=== PATIENT | male | born 1990 | race Caucasian/White ===

== ENCOUNTER 2017-02-26 20:30 | Emergency (ER) | payer SELFPAY ==
[2017-02-26] MEDS ORDERED: Ketorolac Tromethamine 60 MG/2 ML VIAL ONE (20:50)
== END 2017-02-26 21:09 | disposition home or self-care (01) ==
LOC: BURERS 20:30
DX: B34.9 Viral infection, unspecified (principal); I10 Essential (primary) hypertension; I34.1 Nonrheumatic mitral (valve) prolapse; F17.210 Nicotine dependence, cigarettes, uncomplicated
CPT/HCPCS: 96372; J1885

== ENCOUNTER 2017-04-24 17:06 | Emergency (ER) | payer SELFPAY ==
[2017-04-24] MEDS ORDERED: HYDROcodone/Acetaminophen 10/325 mg Tablet ONE (17:24)
[2017-04-24] MEDS ORDERED: Bacitracin Zinc 1 Packet ONE (18:32)
--- NOTE | 2017-04-24 22:07 | RAD ---
RIGHT HAND THREE VIEWS: 04/24/17 No fracture was seen. There is a linear opaque foreign body just medial to the fifth MCP joint that i s probably a small sliver of glass. No other foreign bodies were detected. All bones appeared intact. A faint bony density near the distal radioulnar joint is more likely longstanding than new. IMPRESSION: Small foreign body in the superficial soft tissues just medial to the fifth MCP joint. Code T POS: HOME
== END 2017-04-24 18:36 | disposition home or self-care (01) ==
LOC: BURERS 17:06
DX: S61.411A Laceration without foreign body of right hand, initial encounter (principal); I10 Essential (primary) hypertension; I34.1 Nonrheumatic mitral (valve) prolapse; F17.210 Nicotine dependence, cigarettes, uncomplicated; W25.XXXA Contact with sharp glass, initial encounter
CPT/HCPCS: 12002

== ENCOUNTER 2017-07-13 15:26 | Emergency (ER) | payer SELFPAY ==
[2017-07-13] MEDS ORDERED: Fluorescein Opthalmic Strip ONE (15:56)
[2017-07-13] MEDS ORDERED: Gentamicin Ophth Soln 0.3% 5 ml Bottle ONE (16:12)
== END 2017-07-13 16:22 | disposition home or self-care (01) ==
LOC: BURERS 15:26
DX: H16.001 Unspecified corneal ulcer, right eye (principal); I10 Essential (primary) hypertension; F17.210 Nicotine dependence, cigarettes, uncomplicated
CPT/HCPCS: 99283

== ENCOUNTER 2019-09-22 19:29 | Emergency (ER) | payer OTHER, SELFPAY ==
[2019-09-23 16:12] LABS: SARS-CoV-2 MS2 Positive; SARS-CoV-2 N Gene Negative; SARS-CoV-2 S Gene Negative; SARS-CoV-2 orf1ab Negative
== END 2019-09-22 20:10 | disposition home or self-care (01) ==
LOC: BURERS 19:29
DX: R50.9 Fever, unspecified (principal); R05 Cough; R06.02 Shortness of breath; I10 Essential (primary) hypertension; F17.210 Nicotine dependence, cigarettes, uncomplicated; Z20.828 Contact with and (suspected) exposure to other viral communicable diseases
CPT/HCPCS: 87635; 99283; U0003

== ENCOUNTER 2020-02-28 20:58 | Emergency (ER) | payer OTHER, SELFPAY ==
[2020-02-28] MEDS ORDERED: Bacitracin 1 PK ONE (21:10)
[2020-02-28] MEDS ORDERED: Lidocaine 1% PF 5 ML VIAL ONE ×2 (21:10→21:12)
[2020-02-28] MEDS ORDERED: Cephalexin 250 MG CAP ONE (21:13)
[2020-02-28] MEDS ORDERED: Sulfameth/Trimethoprim DS 800-160mg TAB ONE ×2 (21:14→21:36)
== END 2020-02-28 21:37 | disposition home or self-care (01) ==
LOC: BURERS 20:58
DX: S61.214A Laceration without foreign body of right ring finger without damage to nail, initial encounter (principal); W45.8XXA Other foreign body or object entering through skin, initial encounter; I10 Essential (primary) hypertension; F17.210 Nicotine dependence, cigarettes, uncomplicated
CPT/HCPCS: 64450; 99406

== ENCOUNTER 2020-05-24 09:36 | Emergency (ER) | payer SELFPAY ==
[2020-05-24 23:25] LABS: SARS-CoV-2 PCR by NAA Not Detected (NotDetected)
== END 2020-05-24 10:14 | disposition home or self-care (01) ==
LOC: BURERS 09:36
DX: Z20.822 Contact with and (suspected) exposure to COVID-19 (principal); F17.210 Nicotine dependence, cigarettes, uncomplicated; I10 Essential (primary) hypertension
CPT/HCPCS: 87635; 99283; U0003; U0005